=== PATIENT | female | born 2000 | race Caucasian/White ===

== ENCOUNTER 2021-05-10 03:10 | Emergency (ER) | payer OTHER ==
[2021-05-10 03:20] VITALS: BP 122/59; PULSE 93; TEMP 98.6; BMI 24.3
== END 2021-05-10 06:45 | disposition home or self-care (01) ==
LOC: JER 03:10
DX: J02.9 Acute pharyngitis, unspecified (principal)
CPT/HCPCS: 99283-25; C9803-CS; U0003; U0005

== ENCOUNTER 2021-11-02 19:16 | Emergency (ER) | payer OTHER, SELFPAY ==
[2021-11-02 19:28] VITALS: BP 117/75; PULSE 83; TEMP 98; BMI 25.8
== END 2021-11-02 20:32 | disposition home or self-care (01) ==
LOC: JERFT 19:16
DX: S61.031A Puncture wound without foreign body of right thumb without damage to nail, initial encounter (principal); W46.1XXA Contact with contaminated hypodermic needle, initial encounter
CPT/HCPCS: 99282-25